=== PATIENT | female | born 1940 | race Caucasian/White ===

== ENCOUNTER 2019-06-09 07:07 | Day surgery (SDC) | payer OTHER ==
[~2019-06-09] VITALS: Ht 161.3 cm; Wt 49.4 kg
[~2019-06-09 07:07] MED LIST: AMLO1CAP6 PO; ASPI-1005 PO; ATOR20TA PO; CALC1TAB2 PO; ESOM40CA PO; GABA-531 PO; METO50 PO; SODIUM CHLORIDE 0.9% 1000ML 1,000 ML IV ONE
[2019-06-09 08:45] VITALS: BP 134/72
[2019-06-09] MEDS ORDERED: PROPOFOL 10 MG/ML 20ML VIAL IV ONE (09:31)
[2019-06-09] MEDS ORDERED: LIDOCAINE HCL 1% 20 ML VIAL ONE (09:31)
--- NOTE | 2019-06-09 10:15 | NUR ---
PT LEFT VIA WHEELCHAIR IN PVT CAR. PT. V/S STABLE NO COMPLICATION, D/C INSTRUCTIONS GIVEN TO FAMILY SPOUSE ALONG WITH F/U [email or web address].T
== END 2019-06-09 10:15 | disposition home or self-care (01) ==
LOC: DAH 07:07 → ENDO 07:07
PROVIDERS: ATTEND Internal Medicine
DX: R13.10 Dysphagia, unspecified (principal); K22.2 Esophageal obstruction; K29.50 Unspecified chronic gastritis without bleeding; I25.10 Atherosclerotic heart disease of native coronary artery without angina pectoris; E78.5 Hyperlipidemia, unspecified; K21.9 Gastro-esophageal reflux disease without esophagitis; I10 Essential (primary) hypertension; M19.90 Unspecified osteoarthritis, unspecified site; R19.5 Other fecal abnormalities; Z95.5 Presence of coronary angioplasty implant and graft; Z90.710 Acquired absence of both cervix and uterus; Z79.82 Long term (current) use of aspirin; Z79.899 Other long term (current) drug therapy
CPT/HCPCS: 43239; 43248; 88305; 93005; A4215; A4221; A4222; A4223; A4606; A4620; A4663; J2704; J7030

== ENCOUNTER → 2020-04-18 | Outpatient (CLI) | payer OTHER ==
[~2020-04-18] MED LIST changes: -SODIUM CHLORIDE 0.9% 1000ML 1,000 ML IV ONE
== END | disposition home or self-care (01) ==
LOC: RAH 08:14
PROVIDERS: ATTEND Internal Medicine
DX: M19.042 Primary osteoarthritis, left hand (principal); M19.041 Primary osteoarthritis, right hand; M19.031 Primary osteoarthritis, right wrist; M19.032 Primary osteoarthritis, left wrist; M79.642 Pain in left hand; M79.641 Pain in right hand; M25.531 Pain in right wrist; M25.532 Pain in left wrist
CPT/HCPCS: 73110

== ENCOUNTER → 2020-07-03 | Outpatient (CLI) | payer MEDICARE | END | disposition home or self-care (01) | LOC: SHCH 10:13 | PROVIDERS: ATTEND Internal Medicine Cardiovascular Disease | DX: I70.203 Unspecified atherosclerosis of native arteries of extremities, bilateral legs (principal); I73.1 Thromboangiitis obliterans [Buerger's disease] | CPT/HCPCS: 93925 ==

== ENCOUNTER → 2020-08-03 | Outpatient (CLI) | payer MEDICARE | END | disposition home or self-care (01) | LOC: RAH 11:53 | PROVIDERS: ATTEND Internal Medicine | DX: M47.812 Spondylosis without myelopathy or radiculopathy, cervical region (principal); M47.814 Spondylosis without myelopathy or radiculopathy, thoracic region; M85.80 Other specified disorders of bone density and structure, unspecified site; M41.84 Other forms of scoliosis, thoracic region; M25.78 Osteophyte, vertebrae; M48.02 Spinal stenosis, cervical region; M85.88 Other specified disorders of bone density and structure, other site | CPT/HCPCS: 72040; 72072 ==

== ENCOUNTER 2020-11-14 12:20 | Day surgery (SDC) | payer MEDICARE ==
[2020-11-09 10:53] LABS: BASOPHILS % (AUTO) 0.7 % (0.0-5.0); EOSINOPHILS % (AUTO) 1.2 % (0.0-8.0); HEMATOCRIT 39.3 % (36-48); LYMPHOCYTES % (AUTO) 23.1 % (21.0-51.0); MEAN CORPUSCULAR HEMOGLOBIN 32.8 pg (27.0-33.0); MEAN CORPUSCULAR HGB CONC 32.6 g/dL (32.0-36.0); MEAN CORPUSCULAR VOLUME 100.8 fL (79-99); NEUTROPHILS % (AUTO) 64.7 % (40.0-77.0); PLATELET COUNT (AUTO) 333 K/uL (130-400); RED CELL DISTRIBUTION WIDTH 13.2 % (11.0-15.5); WHITE BLOOD COUNT (AUTO) 6.7 K/uL (4.8-10.8)
[2020-11-09 11:02] LABS: INR 0.97 (0.85-1.15); PROTHROMBIN TIME 10.6 SEC (9.6-11.6)
[2020-11-09 11:03] LABS: CREATININE 0.8 mg/dL (0.5-1.5); POTASSIUM 4.4 mmol/L (3.5-5.1)
[2020-11-09 11:04] LABS: PARTIAL THROMBOPLASTIN TIME 26.9 SEC (26.3-35.5)
[2020-11-09 13:13] VITALS: BP 184/85
[~2020-11-14] VITALS: Ht 160 cm; Wt 51.3 kg
[2020-11-14] VITALS (12 sets, daily range): BP systolic 128–167; BP diastolic 58–83
[~2020-11-14 12:20] MED LIST changes: +ALEN70TA80 PO; +EZET10TA13 PO; +FLUT16H NASAL; +NITR0.4T SL; +vitamin b12 IM
[2020-11-14] MEDS ORDERED: LACTATED RINGERS 1000ML 1,000 ML IV ONE (13:32)
[2020-11-14] MEDS ORDERED: BUPIVACAINE/EPI/PF 0.25% 30ML VIAL IJ ONE (13:53)
[2020-11-14] MEDS ORDERED: LIDOCAINE HCL 1% 20 ML VIAL ONE (13:53)
[2020-11-14] MEDS ORDERED: BUPIVACAINE/PF 0.25% 30ML VIAL IJ ONE (13:53)
[2020-11-14] MEDS ORDERED: CLINDAMYCIN IVPB 600MG/50ML 50 ML IV ONE (14:04)
[2020-11-14] MEDS ORDERED: FENTANYL CITRATE PF 50 MCG/1 ML 2ML VIAL ONE (14:09)
[2020-11-14] MEDS ORDERED: MIDAZOLAM HCL 1 MG/ML 2ML VIAL ONE (14:09)
== END 2020-11-14 17:05 | disposition home or self-care (01) ==
LOC: DAH 12:20
PROVIDERS: ATTEND Podiatrist
DX: M20.41 Other hammer toe(s) (acquired), right foot (principal); Z20.822 Contact with and (suspected) exposure to COVID-19; K21.9 Gastro-esophageal reflux disease without esophagitis; I25.10 Atherosclerotic heart disease of native coronary artery without angina pectoris; E78.5 Hyperlipidemia, unspecified; M19.90 Unspecified osteoarthritis, unspecified site; I10 Essential (primary) hypertension; F41.9 Anxiety disorder, unspecified; Z95.5 Presence of coronary angioplasty implant and graft; Z90.710 Acquired absence of both cervix and uterus; Z90.722 Acquired absence of ovaries, bilateral; Z98.41 Cataract extraction status, right eye; Z98.42 Cataract extraction status, left eye; Z79.82 Long term (current) use of aspirin; Z98.890 Other specified postprocedural states; Z79.899 Other long term (current) drug therapy; Z86.010 Personal history of colon polyps; Z79.01 Long term (current) use of anticoagulants
CPT/HCPCS: 28285; 36415; 73620; 80048; 85025; 85610; 85730; 87635; A4215; A4221; A4222; A4223; A4649; A4663; A4930; A6260; A6446; C1713; C1729; C9803; J2250; J3010; J3490 ×2; J7120 ×2

== ENCOUNTER → 2021-02-16 | Outpatient (CLI) | payer MEDICARE | END | disposition home or self-care (01) | LOC: RAH 14:59 | PROVIDERS: ATTEND Internal Medicine Cardiovascular Disease | DX: R60.9 Edema, unspecified (principal) | CPT/HCPCS: 93971 ==

== ENCOUNTER → 2021-08-08 | Outpatient (CLI) | payer MEDICARE | END | disposition home or self-care (01) | LOC: LAB 11:34 | PROVIDERS: ATTEND Neurological Surgery | DX: M25.512 Pain in left shoulder (principal); M54.12 Radiculopathy, cervical region | CPT/HCPCS: 73030 ==

== ENCOUNTER → 2021-12-10 | Outpatient (CLI) | payer MEDICARE | END | disposition home or self-care (01) | LOC: RAH 11:15 | PROVIDERS: ATTEND Internal Medicine Cardiovascular Disease | DX: I87.1 Compression of vein (principal); I87.2 Venous insufficiency (chronic) (peripheral); E78.5 Hyperlipidemia, unspecified; R59.0 Localized enlarged lymph nodes; I25.10 Atherosclerotic heart disease of native coronary artery without angina pectoris; I34.0 Nonrheumatic mitral (valve) insufficiency; I73.9 Peripheral vascular disease, unspecified; K21.9 Gastro-esophageal reflux disease without esophagitis; I11.9 Hypertensive heart disease without heart failure; I25.2 Old myocardial infarction; I83.899 Varicose veins of unspecified lower extremity with other complications | CPT/HCPCS: 76882 ==

== ENCOUNTER → 2022-02-05 | Outpatient (CLI) | payer MEDICARE | END | disposition home or self-care (01) | LOC: SHCH 13:43 | PROVIDERS: ATTEND Internal Medicine Cardiovascular Disease | DX: I87.2 Venous insufficiency (chronic) (peripheral) (principal) | CPT/HCPCS: 93970 ==

== ENCOUNTER 2022-08-05 09:54 | Emergency (ER) | payer MEDICARE ==
[~2022-08-05] VITALS: Ht 160 cm; Wt 49.4 kg
[2022-08-05] MEDS ORDERED: 0.9% NACL 500ML IV.SOLN 500 ML IV ONE (10:30)
[2022-08-05] MEDS ORDERED: CLINDAMYCIN IVPB 600MG/50ML 50 ML IV SCH (10:30)
[2022-08-05] MEDS ORDERED: KETOROLAC 15MG/ML VIAL (15MG/ML) IV ONE (10:30)
[2022-08-05] MEDS ORDERED: LIDOCAINE HCL-MPF 2% 5ML VIAL ONE (11:08)
[2022-08-05] MEDS ORDERED: BACITRACIN 1 EACH PACKET TP ONE (12:20)
[2022-08-05] MEDS ORDERED: DOCU-116 PO (12:26)
[2022-08-05] MEDS ORDERED: ACET-2079 PO (12:26)
[2022-08-05] MEDS ORDERED: AMOX1TAB16 PO (12:26)
[2022-08-05 12:45] VITALS: BP 169/88
== END 2022-08-05 12:50 | disposition home or self-care (01) ==
LOC: EDH 09:54
DX: S62.630B Displaced fracture of distal phalanx of right index finger, initial encounter for open fracture (principal); I25.10 Atherosclerotic heart disease of native coronary artery without angina pectoris; I10 Essential (primary) hypertension; W54.0XXA Bitten by dog, initial encounter; Y93.89 Activity, other specified; Y92.89 Other specified places as the place of occurrence of the external cause; Y99.8 Other external cause status
CPT/HCPCS: 99284; 96365; 96366; 96375; 73140; 12002; J7040; J3490 ×2; J1885

== ENCOUNTER → 2023-05-08 | Outpatient (CLI) | payer MEDICARE ==
[~2023-05-08] MED LIST changes: +ACET-2079 PO; +AMOX1TAB16 PO; +DOCU-116 PO; -EZET10TA13 PO; +EZET10TA81 PO
== END | disposition home or self-care (01) ==
LOC: RAH 11:40
PROVIDERS: ATTEND Internal Medicine
DX: R07.81 Pleurodynia (principal); R07.89 Other chest pain; W19.XXXA Unspecified fall, initial encounter; X58.XXXA Exposure to other specified factors, initial encounter; Y93.89 Activity, other specified; Y92.89 Other specified places as the place of occurrence of the external cause; Y99.8 Other external cause status
CPT/HCPCS: 71046; 71100

== ENCOUNTER → 2023-06-10 | Outpatient (CLI) | payer MEDICARE | END | disposition home or self-care (01) | LOC: SHCH 14:11 | PROVIDERS: ATTEND Internal Medicine Cardiovascular Disease | DX: M71.21 Synovial cyst of popliteal space [Baker], right knee (principal); M71.22 Synovial cyst of popliteal space [Baker], left knee; I87.1 Compression of vein; I87.2 Venous insufficiency (chronic) (peripheral); I73.9 Peripheral vascular disease, unspecified; I70.8 Atherosclerosis of other arteries | CPT/HCPCS: 93925; 93970 ==

== ENCOUNTER → 2023-06-24 | Outpatient (CLI) | payer MEDICARE | END | disposition home or self-care (01) | LOC: SHCH 08:20 | PROVIDERS: ATTEND Internal Medicine Cardiovascular Disease | DX: I70.0 Atherosclerosis of aorta (principal); Z82.49 Family history of ischemic heart disease and other diseases of the circulatory system | CPT/HCPCS: 93978 ==